=== PATIENT | female | born 1985 | race Caucasian/White ===

== ENCOUNTER → 2020-01-14 | Emergency (ER) | payer MEDICAID ==
[~2020-01-14] VITALS: Ht 160 cm; Wt 53.1 kg
[2020-01-14 02:45] LABS: ABSOLUTE BASOPHILS 0.1 thou/uL (0.0-0.2); ABSOLUTE EOSINOPHILS 0.1 thou/uL (0.0-0.7); ABSOLUTE LYMPHOCYTES 2.5 thou/uL (0.8-5.3); ABSOLUTE MONOCYTES 0.8 thou/uL (0.0-1.2); ABSOLUTE NEUTROPHILS 5.6 thou/uL (1.6-8.1); BASOPHILS 0.6 %; EOSINOPHILS 0.9 %; HEMATOCRIT 42.3 % (37.0-47.0); HEMOGLOBIN 14.2 gm/dL (12.0-15.0); LYMPHOCYTES 27.3 %; MCH 30.8 pg (26.0-34.0); MCHC 33.5 g/dL (28.0-37.0); MCV 92.1 fL (80.0-100.0); MONOCYTES 9.2 %; MPV 7.2 fl. (7.2-11.1); NUCLEATED RBCS 0 /100WBC; PLATELET COUNT* 274 thou/uL (150-400); RDW-CV 13.8 % (10.5-14.5)
[2020-01-14 02:57] LABS: CALCIUM 8.7 mg/dL (8.5-10.1); CREATININE 0.6 mg/dL (0.6-1.3); POTASSIUM 4.8 mmol/L (3.5-5.1)
[2020-01-14 03:02] LABS: ALBUMIN 3.8 g/dL (3.4-5.0); TOTAL BILIRUBIN 0.3 mg/dL (<0.1-1.0); TOTAL PROTEIN 7.2 g/dL (6.4-8.2)
[2020-01-14 05:25] VITALS: BP 120/69
--- NOTE | 2020-01-14 10:54 | EKG ---
[place] [address] ELECTROCARDIOGRAM REPORT Name: YARY BETANCOURT Room: [facility]#: [id number] Admission: 01/14/20 Attend Phys: Discharge: Date of : 83 Date of Service: 01/14/20251 Report #: [id number] THIS REPORT FOR: //name// [facility] ED Test Date: 2020-01-14 Test Time: 02:52:29 Pat Name: YARY BETANCOURT Department: Room: Gender: F [employer] C[employer] Clerk: : 1985 Requested By: Madhuri Rico Order Number: [id number] MD: Micheal Sidhu Measurements Intervals [place] Rate: 80 P: 61 MO: 125 QRS: 25 QRSD: 81 T: 59 QT: 380 QTc: 439 Interpretive Statements Sinus rhythm ST elev, probable normal early repol pattern No previous ECG available for comparison Electronically Signed On 01-14-2020 10:52:50 CDT by Micheal Sidhu [email or web address] <ELECTRONICALLY SIGNED> By: Micheal Sidhu MD, [facility] 01/14/20 1052 1 1 Micheal Sidhu MD, FACC /EPI
== END ==
LOC: M.ERS 02:10
PROVIDERS: Emergency Medicine
DX: S00.11XA Contusion of right eyelid and periocular area, initial encounter (principal); H05.221 Edema of right orbit; R41.82 Altered mental status, unspecified; F17.210 Nicotine dependence, cigarettes, uncomplicated; Y08.89XA Assault by other specified means, initial encounter; Y93.89 Activity, other specified; Y92.89 Other specified places as the place of occurrence of the external cause; Y99.8 Other external cause status